=== PATIENT | male | born 1980 | race Caucasian/White ===

== ENCOUNTER → 2017-05-01 | Outpatient (CLI) | payer BC, OTHER ==
--- NOTE | 2017-05-01 07:53 | DIAGNOSTIC IMAGING REPORT ---
MRI OF THE LUMBAR SPINE WITHOUT CONTRAST CLINICAL HISTORY: Lumbar radiculopathy. COMPARISON STUDY: No previous studies for comparison. TECHNIQUE: Utilizing a 1.5 Daly magnet and dedicated coil, multiplanar, multiecho imaging of the lumbar spine was performed without IV contrast. FINDINGS: For purposes of numbering on this exam, the L5-S1 disc space is assigned to axial image 23 of 25. Alignment of the lumbar spine is anatomic. Vertebral body heights are maintained. There is no suspicious marrow replacement. There is no intracanalicular mass or fluid collection. Conus terminates at the L1-L2 level. Paravertebral soft tissues are unremarkable. A T1 and T2 hyperintense L2 vertebral body lesion may reflect a hemangioma or focal fat. L1-2: The central canal and neural foramen are patent. L2-3: The central canal and neural foramen are patent. L3-4: The central canal and neural foramen are patent. L4-5: The central canal and neural foramen are patent. L5-S1: There is mild disc space narrowing. There is disc bulge with a small central disc protrusion. Central canal is patent. In addition, there is a small right foraminal disc protrusion that may contact the exiting right L5 nerve root. Left neural foramen is patent. There is mild narrowing of the right neural foramen. IMPRESSION: 1. Disc bulge with small superimposed right foraminal disc protrusion at L5-S1 that likely contacts the exiting right L5 nerve root. Mild narrowing of the right neural foramen. Patent central canal and left neural foramen. Small central disc protrusion at L5-S1. 2. Otherwise, unremarkable MRI of the lumbar spine. Electronically signed by: Pa Maldonado M.D. 05/01/2017 7:51 AM Dictated Date/Time: 05/01/2017 7:43 AM
== END | disposition home or self-care (01) ==
LOC: C.MRI 06:19
PROVIDERS: ATTEND Family Medicine Adult Medicine
DX: M51.16 Intervertebral disc disorders with radiculopathy, lumbar region (principal)